=== PATIENT | female | born 1950 | race Caucasian/White ===

== ENCOUNTER 2020-12-30 16:38 | Emergency (ER) | payer BC, MEDICARE ==
[~2020-12-30] VITALS: Ht 160 cm; Wt 57.7 kg
--- NOTE | 2020-12-30 17:01 | NUR ---
DATA ENTRY CLERK:PT TO ROOM FROM TRIAGE
[2020-12-30 17:17] LABS: BASOPHILS % (AUTO) 0 % (0-1); EOSINOPHILS % (AUTO) 0 % (1-7); LYMPHOCYTES % (AUTO) 10 % (22-44); MEAN CORPUSCULAR HEMOGLOBIN 31.9 pg (27.0-34.8); MEAN CORPUSCULAR HGB CONC 34.3 g/dL (32.4-35.8); MEAN PLATELET VOLUME 8.8 fL (7.4-10.4); MONOCYTES % (AUTO) 3 % (2-9); NEUTROPHILS % (AUTO) 87 % (42-75); PLATELET COUNT 178 x10^3/uL (130-400); RED CELL DISTRIBUTION WIDTH 14.5 % (9.6-15.2)
[2020-12-30 17:22] LABS: MD NO
[2020-12-30 17:29] LABS: ALBUMIN 4.2 g/dL (3.4-5.0); ANION GAP 8 mmol/L (5-15); CALCIUM 9.7 mg/dL (8.5-10.1); CHLORIDE 109 mmol/L (98-107); CREATININE 0.99 mg/dL (0.55-1.02)
[2020-12-30] MEDS ORDERED: MECLIZINE CHEWABLE 25 MG TAB PO ONE (17:30)
--- NOTE | 2020-12-30 17:48 | NUR ---
PT RESTING COMFORTABLY. SO AT BEDSIDE.
[2020-12-30] MEDS ORDERED: MECLIZINE CHEWABLE 25 MG TAB ONE (17:52)
--- NOTE | 2020-12-30 17:56 | NUR ---
PT SBA TO BR WITH A STEADY GAIT. UA OBTAINED.
[2020-12-30 18:00] LABS: FREE T4 (FREE THYROXINE) 1.38 ng/dL (0.76-1.46)
[2020-12-30 19:15] VITALS: BP 139/85
== END 2020-12-30 19:27 | disposition home or self-care (01) ==
LOC: ED 19:00
DX: R42 Dizziness and giddiness (principal); R11.2 Nausea with vomiting, unspecified; I45.10 Unspecified right bundle-branch block; R53.1 Weakness; I10 Essential (primary) hypertension; E03.9 Hypothyroidism, unspecified
CPT/HCPCS: 36415; 80048; 82040; 84439; 84443; 85025; 93005; 99284

== ENCOUNTER 2021-01-11 11:08 | Emergency (ER) | payer BC, MEDICARE ==
[~2021-01-11] VITALS: Ht 160 cm; Wt 58.5 kg
[2021-01-11] MEDS ORDERED: PROMETHAZINE 25 MG/ML, 1ML ONE (11:46)
[2021-01-11] MEDS ORDERED: PROMETHAZINE 25 MG/ML, 1ML IM ONE (12:00)
[2021-01-11 12:11] LABS: BASOPHILS % (AUTO) 1 % (0-1); EOSINOPHILS % (AUTO) 2 % (1-7); LYMPHOCYTES % (AUTO) 15 % (22-44); MD NO; MEAN CORPUSCULAR HEMOGLOBIN 32.2 pg (27.0-34.8); MEAN CORPUSCULAR HGB CONC 34.4 g/dL (32.4-35.8); MEAN PLATELET VOLUME 9.1 fL (7.4-10.4); MONOCYTES % (AUTO) 7 % (2-9); NEUTROPHILS % (AUTO) 76 % (42-75); PLATELET COUNT 149 x10^3/uL (130-400); RED BLOOD COUNT 4.01 x10^6/uL (3.82-5.3); RED CELL DISTRIBUTION WIDTH 14.2 % (9.6-15.2)
[2021-01-11 12:13] LABS: ANION GAP 10 mmol/L (5-15); CALCIUM 10.3 mg/dL (8.5-10.1); CHLORIDE 112 mmol/L (98-107)
[2021-01-11 12:17] LABS: ALANINE AMINOTRANSFERASE 24 U/L (12-78); ALBUMIN 3.9 g/dL (3.4-5.0); ALKALINE PHOSPHATASE 42 U/L (45-117); BILIRUBIN,TOTAL 0.4 mg/dL (0.2-1.0); CREATININE 1.02 mg/dL (0.55-1.02); TOTAL PROTEIN 6.8 g/dL (6.4-8.2)
[2021-01-11] MEDS ORDERED: SODIUM CHLORIDE 0.9% 1,000ML IVBOLUS ONE (14:00)
--- NOTE | 2021-01-11 14:23 | NUR ---
TASK RN: PT RESTING IN [facility], MONITORING IN PLACE, AT BEDSIDE, NADN AT THIS TIME, PT MEDICATED PER EMAR.
--- NOTE | 2021-01-11 14:53 | NUR ---
Report from BELLA Antunez.
--- NOTE | 2021-01-11 15:22 | NUR ---
Assisted pt to bedside commode- UA collected and sent to lab.
[2021-01-11 15:47] LABS: MICROSCOPIC NOT IND
[2021-01-11 17:09] VITALS: BP 124/67
== END 2021-01-11 17:10 | disposition home or self-care (01) ==
LOC: ED 13:56
DX: R11.2 Nausea with vomiting, unspecified (principal); I10 Essential (primary) hypertension; E03.9 Hypothyroidism, unspecified
CPT/HCPCS: 36415; 80053; 81003; 85025; 96360; 96372; 99283; J2550; J7030